=== PATIENT | male | born 1940 | race Caucasian/White ===

== ENCOUNTER 2019-05-30 10:01 | Day surgery (SDC) | payer MEDICARE, OTHER, SELFPAY ==
--- NOTE | 2019-05-30 | PATH_ITS ---
[facility] Accession Number: [id number] . 01 Material submitted: . colon - ASCENDING COLON POLYP BIOPSY . 02 Diagnosis: Ascending Colon, Polyp, Biopsy: Tubular adenoma. [facility]/05/31/2019 . 02 Electronically signed: . Rosa Anderson MD, Pathologist NPI- [id number] . 01 Gross description: . ASCENDING COLON POLYP BIOPSY: Received in formalin is 1 fragment(s) of villasenor, soft tissue measuring 0.3 x 0.2 x 0.2 cm which is entirely submitted and submitted entirely in 1 cassette(s) /DMC /DMC . 02 Pathologist provided ICD-10: D12.2 . 02 CPT . 530044 Performed at: 01 [facility] [address] [id number] MD Josue Hairston MD Phone: [phone] Performed at: 02 [facility] [address] [place], [place] [id number] MD Rosa Anderson MD Phone: [phone]
[2019-05-30 10:19] VITALS: BP 165/92; PULSE 67; RESP 16; TEMP 36.1; O2SAT 97; BMI 28.5
[2019-05-30] MEDS: SODIUM CHLORIDE 0.9% 1,000 ML 100 ML IV (10:20)
--- NOTE | 2019-05-30 10:30 | PM.HP.1 ---
History of Present Illness Date Patient Seen: 05/30/19 Time Patient Seen: 10:31 Chief complaint: [id number] Narrative: Abnormal bowel movements and need for follow-up colonoscopy at a 10 year interval Patient History Medical History (Updated 05/30/19 @ 10:32 by Bre Wilson MD) Asthma (Acute) Chronic GERD (Acute) Constipation (Acute) Helicobacter pylori (H. pylori) (Acute) Hypertension (Acute) Pheochromocytoma (Acute) Prostatism (Acute) Meds Home Medications Medication Instructions Recorded Confirmed Type Aspir-81 81 mg DAILY 05/30/19 05/30/19 History fludrocortisone 0.1 mg DAILY 05/30/19 05/30/19 History hydrocortisone 10 mg ONCE PM 05/30/19 05/30/19 History hydrocortisone 20 mg DAILY 05/30/19 05/30/19 History metoprolol tartrate 25 mg DAILY 05/30/19 05/30/19 History tamsulosin 0.4 mg DAILY 05/30/19 05/30/19 History Allergies Allergy/AdvReac Type Severity Reaction Status Date / Time No Known Drug Allergies Allergy Verified 05/30/19 10:03 Exam Narrative Exam Narrative: Oropharynx free of lesions Chest clear to auscultation percussion Cardiac exam reveals no S3 or murmur Assessment & Plan Assessment & Plan narrative: Change in bowel movements. Need for follow-up colonoscopy. Risks, benefits, alternatives have been explained. He did taken the extra dose of his fludrocortisone
--- NOTE | 2019-05-30 10:33 | P.HP_ITS ---
History of Present Illness Date Patient Seen: 05/30/19 Time Patient Seen: 10:31 Chief complaint: [id number] Narrative: Abnormal bowel movements and need for follow-up colonoscopy at a 10 year interval Patient History Medical History (Updated 05/30/19 @ 10:32 by Bre Wilson MD) Asthma (Acute) Chronic GERD (Acute) Constipation (Acute) Helicobacter pylori (H. pylori) (Acute) Hypertension (Acute) Pheochromocytoma (Acute) Prostatism (Acute) Meds Home Medications Medication Instructions Recorded Confirmed Type Aspir-81 81 mg DAILY 05/30/19 05/30/19 History fludrocortisone 0.1 mg DAILY 05/30/19 05/30/19 History hydrocortisone 10 mg ONCE PM 05/30/19 05/30/19 History hydrocortisone 20 mg DAILY 05/30/19 05/30/19 History metoprolol tartrate 25 mg DAILY 05/30/19 05/30/19 History tamsulosin 0.4 mg DAILY 05/30/19 05/30/19 History Allergies Allergy/AdvReac Type Severity Reaction Status Date / Time No Known Drug Allergies Allergy Verified 05/30/19 10:03 Exam Narrative Exam Narrative: Oropharynx free of lesions Chest clear to auscultation percussion Cardiac exam reveals no S3 or murmur Assessment & Plan Assessment & Plan narrative: Change in bowel movements. Need for follow-up colonoscopy. Risks, benefits, alternatives have been explained. He did taken the extra dose of his fludrocortisone
--- NOTE | 2019-05-30 10:47 | PM.OP.ENDO ---
Operative Date/Time/Diagnoses Date of procedure: 05/30/19 Time of procedure: 10:47 Pre-op diagnosis: See indication and findings Procedure & Clinicians Study performed: Colonoscopy Same procedure as scheduled: Yes Indications: Screening Surgeon: Bre Wilson Procedure Notes Procedure in detail: After informed consent was obtained the patient was placed in left lateral decubitus position. The video colonoscope was introduced the rectum and slowly advanced cecum. Preparation was good. On slow withdrawal mucosa was carefully examined. The scope was removed. The patient tolerated the procedure well. Blood loss none Complications none Sedation Total sedation time 24 minutes Fentanyl 100 mg Versed 3 mg IV titration Findings 1. 3 mm polyp in the ascending colon Jumbo biopsy removed completely 2. Otherwise negative colonoscopy to cecum Will be in touch regarding his colon polyp however regardless of the findings I believe this should be his last colonoscopy.
[2019-05-30] MEDS: MIDAZOLAM 5 MG/5 ML VIAL IV (10:56)
[2019-05-30] MEDS: fentaNYL 250 MCG/5 ML INJ IV (10:57)
--- NOTE | 2019-05-30 11:36 | SUR.PHASEII ---
pt awake and talking on arrival to pacu, pt bypassed pacu and went directly to Phase 2.
[2019-05-30 11:37] VITALS: BP 111/74; PULSE 74; RESP 16; TEMP 36.8; O2SAT 99
[2019-05-30 11:55] VITALS: BP 120/70; PULSE 16; RESP 16; TEMP 36.7; O2SAT 99
== END 2019-05-30 12:00 | disposition home or self-care (01) ==
PROVIDERS: PCP Family Medicine; Visit Provider Internal Medicine Gastroenterology
PROC: 0DJD8ZZ Inspection of Lower Intestinal Tract, Via Natural or Artificial Opening Endoscopic (ICD-10-PCS; CPT 45378; principal; 2019-05-30 11:00)
DX: Z12.11 Encounter for screening for malignant neoplasm of colon (principal); I10 Essential (primary) hypertension; J45.909 Unspecified asthma, uncomplicated; D12.2 Benign neoplasm of ascending colon
CPT/HCPCS: 45380; 88305; J2250; J3010

== ENCOUNTER → 2020-09-16 13:30 | Outpatient (CLI) | payer MEDICARE, BC, SELFPAY ==
--- NOTE | 2020-09-16 | DI.MRI.S_ITS ---
PROCEDURE: MR LUMBAR SPINE WO CON INDICATIONS: Lumbago with sciatica, left side TECHNIQUE: Noncontrast sagittal T1 spin echo and T2 fast echo, sagittal STIR, axial T1 and T2 fast spin echo through the lumbar spine. In cases with scoliosis, additional coronal T2 fast spin echo may be performed. COMPARISON: [facility], CR, XR LUMBAR SPINE 2 OR 3 VIEWS, 06/14/2019, 9:58. FINDINGS: Image quality: Excellent. Alignment and Curvature: There is mild L4-L5 anterolisthesis. 13? of convex left thoracolumbar spine scoliosis. Bones: Schmorl's nodes noted in the inferior endplate of the L1 and L3 vertebral bodies. Reactive endplate changes noted adjacent L1-L2 and L3-L4 disc. No acute vertebral body compression fractures. Spinal Cord: Conus medullaris terminates at the T12 level. Visualized cord demonstrates normal signal and size. Paraspinous Soft Tissues: No paravertebral masses. L1-L2: Loss of disc signal and height. Mild bilateral facet hypertrophy. Mild narrowing of the central canal. Mild bilateral neural foraminal narrowing. No neural compression. L2-L3: Loss of disc signal. Mild, diffuse disc bulge. Moderate bilateral facet hypertrophy. Mild to moderate narrowing of the central canal. Moderate right and mild left neural foraminal narrowing. No neural compression. L3-L4: Loss of disc signal. Mild to moderate diffuse disc bulge. Moderate bilateral facet hypertrophy. Moderate narrowing of the central canal. Moderate right and mild left neural foraminal narrowing. No neural compression L4-L5: Loss of disc signal. Mild, diffuse disc bulge. Moderate right severe left facet hypertrophy. Moderate narrowing of the central canal. Moderate right and moderate to severe left neural foraminal narrowing with slight compression of the exiting left L4 nerve root. L5-S1: Loss of disc signal. Mild, diffuse disc bulge. [id number] bilateral facet hypertrophy. Epidural lipomatosis. Severe narrowing of the central canal. Mild right and moderate left neural foraminal narrowing. Fissure noted in the posterior annulus. IMPRESSION: 1. Multilevel degenerative disease. 2. Multilevel facet arthropathy. 3. Severe L5-S1 central canal narrowing with compression of the traversing nerve roots of the cauda equina. 4. Moderate to severe left L4-L5 neural foraminal narrowing with slight compression of the exiting left L4 nerve root. 5. L5-S1 disc annulus fissure. Dictated by: Priscila Shepherd MD, PhD on 09/16/2020 at 16:17 Approved by: Priscila Shepherd MD, PhD on 09/16/2020 at 16:23
== END ==
PROVIDERS: PCP Family Medicine; Referring Provider Family Medicine; Visit Provider Physical Medicine & Rehabilitation
DX: M51.16 Intervertebral disc disorders with radiculopathy, lumbar region (principal); M51.17 Intervertebral disc disorders with radiculopathy, lumbosacral region; M47.26 Other spondylosis with radiculopathy, lumbar region; M47.27 Other spondylosis with radiculopathy, lumbosacral region; M48.07 Spinal stenosis, lumbosacral region; M48.061 Spinal stenosis, lumbar region without neurogenic claudication
CPT/HCPCS: 72148

== ENCOUNTER → 2021-02-16 13:08 | Outpatient (CLI) | payer MEDICARE, BC, SELFPAY ==
--- NOTE | 2021-02-16 | DI.RAD.S_ITS ---
PROCEDURE: FL BARIUM SWALLOW W SPEECH INDICATIONS: Dysphonia COMPARISON: None. TECHNIQUE: Examination was conducted in conjunction with speech pathology per standard protocol. In the lateral projection, filming was performed of the patient swallowing. AP projection filming may also be performed with patient swallowing. COMPARISON: FINDINGS: Cervical spondylosis is noted from C5-C7 Function: The oral preparatory phase appears normal, with proper containment. The subsequent oral propulsive phase, pharyngeal phase, and esophageal phase of swallowing also appear normal with all proffered substances. No laryngotracheal penetration or aspiration. There was moderate residue. Morphology: No cricopharyngeal bar is identified. No cervical esophageal webs. No Zenker's diverticulum. No strictures. IMPRESSION: No tracheal aspiration seen. Dictated by: Leobardo Munoz M.D. on 02/16/2021 at 14:13 Approved by: Leobardo Munoz M.D. on 02/16/2021 at 14:14
--- NOTE | 2021-02-16 16:18 | ST.SWALLOW ---
Visit Care Team Role Provider Type Mayank Mitchell MD Primary Care Provider Non-Staff Specialty: Medical Address: [address] [place] [address] [address], [place], [address] Email: Zaki Concepcion MD Attending Provider Physician Referring Provider Specialty: Ear, Nose, Throat Address: [address] [place] [address] [place], [address] Email: [email or web address] Modified Barium Swallow Study GUN NUMBER Modified Barium Swallow Study Start: 02/16/21 14:30 Freq: Status: Active Protocol: Document 02/16/21 14:43 LNK (Rec: 02/16/21 15:14 LNK [id number]) Modified Barium Swallow Study Total Time Visit Start Time 13:30 Visit Stop Time 14:00 Total Visit Minutes [address] Concepcion Reason for Referral Dysphagia; throat pain Setting Setting Outpatient Care Patient Information Identification Type Name,Date of Patient History Pt was seen for a Modified Barium Swallow Study at the referral Dr. Jamey MD, ENT. According to the pt for approximately the past 4 years , he has experienced an irritating pain when he swallows. He added that the pain is not consistent. He remarked that Dr. Concepcion observed that one of his vocal folds was not completely closing. No further information was provided. Pt denied an history of surgery or injury in the neck area. Describing his swallow, the pt noted that he may cough during a meal, but that it is not consistent. Subjective Observations Pt presented with a hoarse voice. Pt was seated in the fluoroscopy chair. Procedures and instructions were described for the pt who indicated he understood and agreed to proceed. Patient Positioning Position View Lateral Imaging Lateral View Textures Administered Trials Presented Thin Liquid via Spoon,Thin Liquid via Cup,Pudding Thick Liquid via Spoon,Regular Textures,Barium Tablet Oral Phase Source: MBSIMP (TM) (C) Bolus Specific Scoring Grid Lip Closure No Impairment (WNL) Tongue Control During Bolus Hold No Impairment (WNL) Bolus Prep/Mastication No Impairment (WNL) Bolus Transport/Lingual Motion No Impairment (WNL) A/P Lingual Propulsion Delay No Oral Residue No Impairment (WNL) Residue Clearing No Impairment (WNL) Nasal Regurgitation No Additional Oral Phase Observations Pt had several molars missing noted during the oral examination. Dentition was naturaal and in good hygeine. Strength, ROM, accuracy and speed of structures was observed to be WFL and adequate for mastication. Pharyngeal Phase Source: MBSIMP (TM) (C) Bolus Specific Scoring Grid Delayed Initiation of Pharyngeal Swallow No: WFL with exception of cookie which spilled to the valeculla Soft Palate Elevation WFL Tongue Base Strength/Range of Motion WFL Residue Along the Tongue Base No: trace Clearance of Residue Along Tongue Base Minimal Impairment Laryngeal Elevation Mild Impairment Anterior Hyoid Movement Mild Impairment Epiglottic Range of Motion Mild Impairment Vallecular Residue Yes: across all trials cookie -> more residue; tablet took 20s to cleat valecull Clearance of Vallecular Residue Moderate Impairment Laryngeal Vestibular Closure Mild Impairment Pharyngeal Stripping Wave Mild Impairment Pharyngeal Contraction Mild Impairment Posterior Pharyngeal Wall Residue Yes: trace to minimal Clearance of Posterior Pharyngeal Wall WFL Residue Upper Esophageal Sphincter Opening Mild Impairment Residue in the Pyriform Sinuses Yes Clearance of Residue in the Pyriform Mild Impairment Sinuses Pharyngoesophageal Backflow Observed No Additional Pharyngeal Phase Observations Swallow response was WFL with premature spillage to the valevulla observed x1 with the cookie trial and large consecutive liquid boluses. Laryngeal elevation, hyoid movement and epiglottal inversion were WFL considering pt's age of 80. Mild pooling of contrast residue was observed in the valeculla, pyriform sinuses and posterior pharyngeal wall. Flash penetration into the laryngeal vestibule was observed x1 with consecutive swallows. Linguapharyngeal contact was observed to be weak, contributing to the valecullar pooling. There were osteophytes observed at C5-C6 and C6-C7 that narrowed the bolus flow as well as the UES opening. The last trial was with an 11mm tablet that was observed to stay within ( vertical) or on (horizontal) the epiglottis for 20 seconds. The epiglottis did not fully invert for the tablet; it was swallowed after the 20 seconds successfully. This poses an aspiration risk for the pt. There was no overt s/ sx of aspiration. Pt's swallow is considered WFL for the pt's age. It is recommended that large pills be cut in half, if possible and/or large pills should be taken with a carrier (pudding, applesauce, yogurt, etc) to increase the bolus bulk, which would aid in fully inverting the epiglottis. A/P View Clinical Impressions Dysphagia Type No dysphagia (WFL for pt's age ) Patient Appropriate for Therapy No Recommendations Diet Liquids Order Thin Diet Order Regular Medication Recommendation Whole in Carrier Treatment Plan Recommended Referrals Primary Care Physician,ENT Consult
== END ==
PROVIDERS: PCP Family Medicine; Referring Provider Otolaryngology; Visit Provider Otolaryngology
DX: R49.0 Dysphonia (principal); R07.0 Pain in throat
CPT/HCPCS: 74230; 92610

== ENCOUNTER → 2021-03-12 12:56 | Outpatient (CLI) | payer MEDICARE, BC, SELFPAY | PROVIDERS: PCP Family Medicine; Referring Provider Internal Medicine Endocrinology, Diabetes & Metabolism; Visit Provider Internal Medicine Endocrinology, Diabetes & Metabolism | DX: Z79.818 Long term (current) use of other agents affecting estrogen receptors and estrogen levels (principal); E25.9 Adrenogenital disorder, unspecified; E27.9 Disorder of adrenal gland, unspecified; Z87.891 Personal history of nicotine dependence | CPT/HCPCS: 77080 ==

== ENCOUNTER → 2021-08-14 11:06 | Outpatient (CLI) | payer MEDICARE, BC, SELFPAY ==
--- NOTE | 2021-08-14 | DI.MRI.S_ITS ---
PROCEDURE: MR SHOULDER LT WO CON INDICATIONS: Impingement syndrome of left shoulder TECHNIQUE: Noncontrast oblique coronal T2 fast spin echo with fat saturation, oblique sagittal T1 spin echo and T2 fast spin echo with fat saturation, axial T1 spin echo and T2 fast spin echo with fat saturation through the shoulder. COMPARISON: None. FINDINGS: Image quality: Excellent. Rotator cuff: Supraspinatus: T2 hyperintense signal at the musculotendinous junction, compatible with interstitial tear. Advanced tendinopathy. Macerated appearance of the tendon with near full-thickness tear (i.e. Series 7, image 8). Infraspinatus: Moderate tendinopathy with small partial bursal and articular surface tears. Subscapularis: Mild tendinopathy with partial articular surface tear. Teres minor: No significant abnormality. Sagittal images demonstrate at least grade 2 atrophy of the supraspinatus muscle. Bones and bursae: Flattened contour of the humeral head, likely reflecting Hill-Sachs injury. No fracture line is appreciated. Moderate to advanced acromioclavicular joint degeneration with T2 hyperintense signal within the articulation. No os acromiale. Subacromial/subdeltoid fluid is seen, compatible with bursitis. Moderate distention of the subscapular bursa. Capsule and soft tissues: Signal in the anterior labral, common likely reflecting degenerative change/tear. The long head of the biceps tendon demonstrates normal location and morphology. The coracoclavicular ligament is intact. IMPRESSION: 1. Advanced supraspinatus tendinopathy with macerated appearance of the tendon and a full-thickness tear. 2. Moderate infraspinatus tendinopathy with small partial bursal and articular surface tears. 3. Mild subscapularis tendinopathy with partial articular surface tear. 4. At least grade 2 atrophy of the supraspinatus muscle. 5. Hill-Sachs deformity of the humeral head. 6. Moderate to advanced AC joint degeneration. 7. Mild subacromial/subdeltoid bursitis. 8. Moderate distention of the subscapular bursa. 9. Degenerative changes/tear of the anterior labrum. Dictated by: Ector Austin M.D. on 08/14/2021 at 13:41 Approved by: cEtor Austin M.D. on 08/14/2021 at 13:54
== END ==
PROVIDERS: PCP Internal Medicine; Referring Provider Orthopaedic Surgery; Visit Provider Orthopaedic Surgery
DX: M75.122 Complete rotator cuff tear or rupture of left shoulder, not specified as traumatic (principal); S46.812A Strain of other muscles, fascia and tendons at shoulder and upper arm level, left arm, initial encounter; M62.512 Muscle wasting and atrophy, not elsewhere classified, left shoulder; M21.822 Other specified acquired deformities of left upper arm; M19.012 Primary osteoarthritis, left shoulder; M75.52 Bursitis of left shoulder
CPT/HCPCS: 73221

== ENCOUNTER → 2023-01-12 13:05 | Outpatient (CLI) | payer MEDICARE, BC, SELFPAY ==
--- NOTE | 2023-01-12 | DI.MRI.S_ITS ---
PROCEDURE: MR CERVICAL SPINE WO CON INDICATIONS: Radiculopathy, cervical region TECHNIQUE: Noncontrast sagittal T1 spin echo and T2 fast spin echo, sagittal STIR, foraminal oblique sagittal T2 fast spin echo, and axial gradient echo or T2 fast spin echo through the cervical spine. COMPARISON: [facility], CR, XR CERVICAL SPINE 2 OR 3 VIEWS, 12/23/2022, 10:21. FINDINGS: Image quality: Excellent. Alignment and Curvature: Remote interbody fusion at C6-C7. Trace anterolisthesis of C2 on C3. Bone Marrow: Marrow demonstrates normal overall signal. Spinal Cord: Visualized spinal cord has normal size and signal. No cerebellar tonsillar herniation. Paraspinous Soft Tissues: No paravertebral masses. Prevertebral soft tissues are normal in thickness. C2-C3: Minimal disc bulge. AP diameter of the canal is 9.9 mm. Bilateral facet hypertrophy, prominent on the left. Moderate to severe left foraminal nerve root narrowing with a degree of left foraminal C3 nerve root impingement. C3-C4: Minimal central posterior disc protrusion indenting on the cord minimally. AP diameter of the canal is 9.9 mm. Bilateral facet hypertrophy. [id number] bilateral foraminal narrowing. Short pedicles. C4-C5: Central posterior disc plus osteophyte indenting on the cord. AP diameter of the canal is 8.5 mm. Bilateral facet hypertrophy, prominent on the right. Bilateral uncovertebral joint hypertrophy. Severe right and moderate to severe left foraminal narrowing with bilateral foraminal C5 nerve root impingement. C5-C6: Short pedicles. Diffuse posterior disc post osteophyte flattening the cord. AP diameter of the canal is 7.4 mm. Bilateral uncovertebral joint hypertrophy. Bilateral facet hypertrophy. Severe right and moderate to severe left foraminal narrowing with bilateral foraminal C6 nerve root impingement. C6-C7: Fused. Prominent posterior osteophyte, eccentric to the left. The central canal AP diameter is 6.3 mm. The left side of the canal is narrowed more than that. Mild right foraminal narrowing. Moderate to severe left foraminal narrowing with a degree of left foraminal C7 nerve root impingement. C7-T1: No canal stenosis or foraminal stenosis. IMPRESSION: 1. Remote interbody fusion at C6-C7. 2. There is at least some degree of canal stenosis from C2-C3 through C6-C7. Canal stenosis is moderate at C4-C5, severe at C5-C6, and marked at C6-C7. 3. Significant multilevel foraminal narrowing bilaterally as described above. Findings include moderate to severe left foraminal narrowing at C2-C3, severe right and moderate to severe left foraminal narrowing at C4-C5, severe right and moderate to severe left foraminal narrowing at C5-C6, and moderate to severe left foraminal narrowing at C6-C7. Dictated by: Renato Don M.D. on 01/13/2023 at 9:05 Approved by: Renato Don M.D. on 01/13/2023 at 9:19
== END ==
PROVIDERS: PCP Internal Medicine; Referring Provider Physical Medicine & Rehabilitation; Visit Provider Physical Medicine & Rehabilitation
DX: M54.12 Radiculopathy, cervical region (principal); M48.02 Spinal stenosis, cervical region; Z98.1 Arthrodesis status
CPT/HCPCS: 72141

== ENCOUNTER 2023-11-26 10:52 | Emergency (ER) | payer MEDICARE, OTHER, SELFPAY ==
[2023-11-26 11:03] VITALS: BP 175/79; PULSE 63; RESP 18; TEMP 36.7; O2SAT 98; BMI 28.7
--- NOTE | 2023-11-26 11:39 | DI.RAD.S_ITS ---
PROCEDURE: XR PELVIS 1-2V INDICATIONS: fall TECHNIQUE: One-view of the pelvis acquired. COMPARISON: None. FINDINGS: Bones: No acute fractures or dislocations. No suspicious bony lesions. Soft tissues: Visualized bowel gas pattern is normal. No suspicious soft tissue calcifications. IMPRESSION: No acute osseous abnormality. If the symptoms persist, consider cross sectional imaging such as MRI or CT for further assessment. Approved by: Wes Ross M.D. on 11/26/2023 at 12:38
--- NOTE | 2023-11-26 11:39 | DI.RAD.S_ITS ---
PROCEDURE: XR LUMBAR SPINE 2-3V INDICATIONS: fall TECHNIQUE: 3 views of the lumbar spine were acquired. COMPARISON: [facility], MR, MR LUMBAR SPINE WO CON, 09/16/2020, 13:42. FINDINGS: Bones: 5 [id number] vertebrae are present. Mild levoconvex curvature of the lower thoracic and upper lumbar spine. Mild grade 1 anterolisthesis at L4-5. Moderate superior endplate compression deformity of the L1 vertebral body. Multilevel degenerative disc disease and facet hypertrophy are seen throughout the lumbar spine. No suspicious bony lesions. Soft tissues: Overlying bowel gas pattern is normal. No suspicious soft tissue calcifications. IMPRESSION: Moderate compression fracture of the L1 vertebral body, which is of uncertain age but appears new when compared to the MRI from 09/16/2020. Recommend correlation for point tenderness. Approved by: Wes Ross M.D. on 11/26/2023 at 12:38
--- NOTE | 2023-11-26 11:39 | DI.RAD.S_ITS ---
PROCEDURE: XR SACRUM COCCYX MIN 2V INDICATIONS: fall TECHNIQUE: 3 views of the sacrum and coccyx acquired. COMPARISON: None. FINDINGS: Bones: No acute fractures or dislocations. No suspicious bony lesions. Soft tissues: Visualized bowel gas pattern is normal. No suspicious soft tissue densities. IMPRESSION: No acute osseous abnormality. If the symptoms persist, consider cross sectional imaging such as MRI or CT for further assessment. Approved by: Wes Ross M.D. on 11/26/2023 at 12:35
[2023-11-26] MEDS: ACETAMINOPHEN 325 MG TABLET 975 MG PO (12:13)
--- NOTE | 2023-11-26 13:11 | ED_ITS ---
HPI - Back Pain/Injury <Brook Grimes PA-C - Last Filed: 11/26/23 19:00> General Chief Complaint: Back Pain/Injury Stated Complaint: fall, pain from waist down Time Seen by Provider: 11/26/23 11:14 Source: patient History of Present Illness HPI Narrative: 83-year-old male here today for a fall that occurred yesterday. He slipped on ice and fell straight down on his buttocks with his legs straight out. He is having pain in his low back and lower abdominal area. He is able to walk. States it is most painful when changing positions shifting or going from sitting to standing. He denies numbness or tingling or weakness in the lower extremities. He did not hit his head or have any LOC. his pain does not radiate down his legs. He has a history of sciatica but no history of other back injuries or trauma to the back. He has Guthrie's disease and takes chronic steroids. Related Data Home Medications Medication Instructions Recorded Confirmed Aspir-81 81 mg DAILY 05/30/19 05/30/19 fludrocortisone 0.1 mg DAILY 05/30/19 05/30/19 hydrocortisone 10 mg ONCE PM 05/30/19 05/30/19 hydrocortisone 20 mg DAILY 05/30/19 05/30/19 metoprolol tartrate 25 mg DAILY 05/30/19 05/30/19 tamsulosin 0.4 mg DAILY 05/30/19 05/30/19 Allergies Allergy/AdvReac Type Severity Reaction Status Date / Time No Known Drug Allergies Allergy Verified 05/30/19 10:03 Review of Systems <Brook Grimes PA-C - Last Filed: 11/26/23 19:00> Review of Systems ROS Unobtainable: All systems reviewed & are unremarkable except as noted in HPI and below Patient History <Brook Grimes PA-C - Last Filed: 11/26/23 19:00> Medical History (Updated 11/26/23 @ 17:26 by Brook Grimes PA-C) Prostatism Chronic GERD Constipation Helicobacter pylori (H. pylori) Hypertension Asthma Pheochromocytoma Social History household members: spouse Exam <Brook Grimes PA-C - Last Filed: 11/26/23 19:00> Narrative Exam Narrative: GENERAL: [83] year old patient appears stated age. Well-developed patient, in no acute distress. HEAD: Atraumatic. Normocephalic. EYES: Pupils equal round and reactive. Extraocular motions intact. No scleral icterus. No injection or drainage. ENT: Nose without bleeding, purulent drainage. Airway patent. NECK: Trachea midline. Non tender CARDIOVASCULAR: Regular rate and rhythm without murmurs, gallops, or rubs. RESPIRATORY: Clear to auscultation. Breath sounds equal bilaterally. No wheezes, rales, or rhonchi. GASTROINTESTINAL: Abdomen soft, non-tender, nondistended. EXTREMITIES: No edema or joint tenderness. Normal distal pulses. No hip tenderness. BACK: Nontender without deformity or crepitus. No flank tenderness. No pinpoint spinal tenderness or step-offs. NEURO: AOx3. Ambulating independently. Normal neuro exam of the lower extremities with no weakness or deficits in sensation. no foot drop SKIN: No rash or erythema of visible areas Initial Vital Signs Initial Vital Signs: Vital Signs Temperature 98.0 F 11/26/23 11:03 Pulse Rate 63 11/26/23 11:03 Respiratory Rate 18 11/26/23 11:03 Blood Pressure 175/79 H 11/26/23 11:03 Pulse Oximetry 98 11/26/23 11:03 Oxygen Delivery Method Room Air 11/26/23 11:03 <Courtney Santana MD - Last Filed: 11/27/23 07:05> Initial Vital Signs Initial Vital Signs: Vital Signs Temperature 98.0 F 11/26/23 11:03 Pulse Rate 63 11/26/23 11:03 Respiratory Rate 18 11/26/23 11:03 Blood Pressure 175/79 H 11/26/23 11:03 Pulse Oximetry 98 11/26/23 11:03 Oxygen Delivery Method Room Air 11/26/23 11:03 Course <Brook Grimes PA-C - Last Filed: 11/26/23 19:00> Orders Ordered: Discontinued Medications Acetaminophen (Acetaminophen 325 Mg Tablet) 975 mg PO NOW ONE Stop: 11/26/23 12:08 Last Admin: 11/26/23 12:13 Dose: 975 mg Documented By: MARYAM Ketorolac Tromethamine (Ketorolac 30 Mg/Ml Vial) 30 mg IM NOW ONE Stop: 11/26/23 11:40 Last Admin: 11/26/23 12:03 Dose: Not Given Documented By: MARYAM Vital Signs Vital signs: Vital Signs - 8 hr 11/26/23 11:03 11/26/23 14:22 11/26/23 17:19 Temperature 98.0 F Pulse Rate 63 59 L 60 Respiratory Rate 18 22 20 Blood Pressure 175/79 H 145/67 H 169/82 H Pulse Oximetry 98 97 99 Oxygen Delivery Method Room Air Room Air Room Air 11/26/23 18:36 Temperature Pulse Rate 68 Respiratory Rate 18 Blood Pressure 173/85 H Pulse Oximetry 99 Oxygen Delivery Method Room Air <Courtney Santana MD - Last Filed: 11/27/23 07:05> Orders Ordered: Discontinued Medications Acetaminophen (Acetaminophen 325 Mg Tablet) 975 mg PO NOW ONE Stop: 11/26/23 12:08 Last Admin: 11/26/23 12:13 Dose: 975 mg Documented By: MARYAM Ketorolac Tromethamine (Ketorolac 30 Mg/Ml Vial) 30 mg IM NOW ONE Stop: 11/26/23 11:40 Last Admin: 11/26/23 12:03 Dose: Not Given Documented By: MARYAM Vital Signs Vital signs: Vital Signs - 8 hr 11/26/23 11:03 11/26/23 14:22 11/26/23 17:19 Temperature 98.0 F Pulse Rate 63 59 L 60 Respiratory Rate 18 22 20 Blood Pressure 175/79 H 145/67 H 169/82 H Pulse Oximetry 98 97 99 Oxygen Delivery Method Room Air Room Air Room Air 11/26/23 18:36 Temperature Pulse Rate 68 Respiratory Rate 18 Blood Pressure 173/85 H Pulse Oximetry 99 Oxygen Delivery Method Room Air MDM - Back Pain/Injury <Brook Grimes PA-C - Last Filed: 11/26/23 19:00> Imaging Data Lumbar Xray: Radiologist's Impression: [address] [address] XRay Report Signed Patient: Neri Maynard MR#: [id number] : 1940 Acct:[id number] Age/Sex: 83 / M Date of Service: 11/26/23 Loc: ED Accession Number: [id number] Procedure: XR lumbar spine 2-3V Ordering Provider: Simm,Brook L P.A-C PROCEDURE: XR LUMBAR SPINE 2-3V INDICATIONS: fall TECHNIQUE: 3 views of the lumbar spine were acquired. COMPARISON: [facility], MR, MR LUMBAR SPINE WO CON, 09/16/2020, 13:42. FINDINGS: Bones: 5 [id number] vertebrae are present. Mild levoconvex curvature of the lower thoracic and upper lumbar spine. Mild grade 1 anterolisthesis at L4-5. Moderate superior endplate compression deformity of the L1 vertebral body. Multilevel degenerative disc disease and facet hypertrophy are seen throughout the lumbar spine. No suspicious bony lesions. Soft tissues: Overlying bowel gas pattern is normal. No suspicious soft tissue calcifications. IMPRESSION: Moderate compression fracture of the L1 vertebral body, which is of uncertain age but appears new when compared to the MRI from 09/16/2020. Recommend correlation for point tenderness. Approved by: Wes Ross M.D. on 11/26/2023 at 12:38 Sacrum and Coccyx Xray : Radiologist's Impression: [address] [address] XRay Report Signed Patient: Neri Maynard MR#: [id number] : 1940 Acct:[id number] Age/Sex: 83 / M Date of Service: 11/26/23 Loc: ED Accession Number: [id number] Procedure: XR sacrum coccyx min 2V Ordering Provider: Brook Grimes P.A-C PROCEDURE: XR SACRUM COCCYX MIN 2V INDICATIONS: fall TECHNIQUE: 3 views of the sacrum and coccyx acquired. COMPARISON: None. FINDINGS: Bones: No acute fractures or dislocations. No suspicious bony lesions. Soft tissues: Visualized bowel gas pattern is normal. No suspicious soft tissue densities. IMPRESSION: No acute osseous abnormality. If the symptoms persist, consider cross sectional imaging such as MRI or CT for further assessment. Approved by: Wes Ross M.D. on 11/26/2023 at 12:35 Pelvis Xray : Radiologist's Impression: [address] [address] XRay Report Signed Patient: Neri Maynard MR#: [id number] : 1940 Acct:[id number] Age/Sex: 83 / M Date of Service: 11/26/23 Loc: ED Accession Number: [id number] Procedure: XR pelvis 1-2V Ordering Provider: Brook Grimes P.A-C PROCEDURE: XR PELVIS 1-2V INDICATIONS: fall TECHNIQUE: One-view of the pelvis acquired. COMPARISON: None. FINDINGS: Bones: No acute fractures or dislocations. No suspicious bony lesions. Soft tissues: Visualized bowel gas pattern is normal. No suspicious soft tissue calcifications. IMPRESSION: No acute osseous abnormality. If the symptoms persist, consider cross sectional imaging such as MRI or CT for further assessment. Approved by: Wes Ross M.D. on 11/26/2023 at 12:[address] : Radiologist's Impression: [address] [address] [address] Scan Report Signed Patient: Neri Maynard MR#: [id number] : 1940 Acct:[id number] Age/Sex: 83 / M Date of Service: 11/26/23 Loc: ED Accession Number: [id number] Procedure: CT lumbar spine wo con Ordering Provider: Brook Grimes P.A-C PROCEDURE: CT LUMBAR SPINE WO CON INDICATIONS: L1 compression fx TECHNIQUE: Noncontrast 3 mm thick sections acquired from the T12 level to the sacrum. Sagittal and coronal reformats were constructed. For radiation dose reduction, the following was used: automated exposure control. COMPARISON: [facility], , MR LUMBAR SPINE WO CON, 09/16/2020, 13:42. FINDINGS: Image quality: Excellent. Bones: There is normal bony alignment. No acute vertebral body compression fractures. No suspicious lytic or blastic bony lesions. No pars defects. Convex left thoracolumbar scoliosis present. Wedge-shaped L1 compression fracture with 50% anterior height loss and no retrop ulsed fracture fragment. Right L5 pars defect without spondylolisthesis. Degenerative disc space narrowing and hypertrophic facet joints associated with moderate central stenosis L3-4, grade 1 anterior spondylolisthesis L4-5 with moderate central stenosis and left foraminal stenosis Soft tissues: No retroperitoneal masses or hematomas. Visualized aorta is normal in caliber. IMPRESSION: L1 compression fracture without significant retropulsed fracture fragment new from 09/16/2020. 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 on 11/26/2023 at 13:54 MDM Narrative Medical decision making narrative: Patient is ambulating independently, has no neurologic deficits, in his initial exam was benign with no vertebral tenderness or step-offs or other pinpoint tenderness found. However due to his age and history of chronic steroids for his Guthrie's I obtained imaging of his lumbar, sacral, and pelvic regions. Lumbar x-ray revealed an L1 compression fracture. This was followed up with a CT without contrast which showed 50% loss of vertebral height but good alignment overall. I obtained a consultation with neurosurgery through [facility], Dr Garvey, and he recommended patient wear a TLSO brace whenever sitting and standing and recommend no twisting, bending, or lifting over 5 lb. TLSO brace was put on patient today and follow up x-rays of patient's standing with brace on were done to check for vertebral alignment. Recommends patient follow up with Neurosurgery within 2 weeks. Patient already has a neurosurgeon in [place] Dr. Redding who they will plan to follow up with. Patient continues to have no neurologic deficits on exam and he has decent pain control with OTC analgesics. Discharge Plan Departure Patient Disposition: Home Clinical Impression: Compression fracture of first lumbar vertebra Qualifiers: Encounter type: initial encounter Qualified Code(s): S32.010A - Wedge compression fracture of first lumbar vertebra, initial encounter for closed fracture Instructions: Vertebral Compression Fracture Activity Restrictions/Additional Instructions: You were seen today for back pain after a fall yesterday. Your back x-ray revealed a compression fracture of the L1 vertebrae. Due to the level of involvement of the vertebrae (50%) it was recommended that you wear a TLSO brace which you were given today. Please wear this whenever you are sitting or standing. Please avoid all bending and twisting. Please avoid lifting over 5 lb. You will need to follow up with Neurosurgery within the next 2 weeks. You already have a neurosurgeon Dr. Redding so please call his office this week to ar range a follow up appointment. If you develop any numbness or tingling or weakness in your legs please return to the emergency department. Please continue to take ibuprofen 600 mg every 6-8 hours as needed for pain and you may take Tylenol 500 mg in between if needed. Prescriptions: No Action Aspir-81 81 mg 81 mg DAILY fludrocortisone 0.1 mg 0.1 mg DAILY hydrocortisone 5 mg 20 mg DAILY hydrocortisone 5 mg 10 mg ONCE PM metoprolol tartrate 25 mg 25 mg DAILY tamsulosin 0.4 mg 0.4 mg DAILY Referrals: Kirk Perez MD [Primary Care Provider] - Stand Alone Forms: Patient Portal/API ED Sign-out <Courtney Santana MD - Last Filed: 11/27/23 07:05> Cosign ED Attending Cosignature Attestation: I did not see this patient. I was available all times for consultation.
--- NOTE | 2023-11-26 13:15 | PC.NURSE ---
provider at bedside w/ pt and family
[2023-11-26 14:22] VITALS: BP 145/67; PULSE 59; RESP 22; O2SAT 97
--- NOTE | 2023-11-26 17:03 | DI.RAD.S_ITS ---
PROCEDURE: XR LUMBAR SPINE 2-3V INDICATIONS: L1 compression fx TECHNIQUE: 3 views of the lumbar spine were acquired. COMPARISON: [facility], CR, XR LUMBAR SPINE 2-3V, 11/26/2023, 11:49. FINDINGS: Bones: Generalized decreased osseous mineralization noted.. L1 compression fracture noted in appropriate position in brace. Facet arthropathy throughout the exam so seated with grade 1 anterior spondylolisthesis L4-5. Soft tissues: Overlying bowel gas pattern is normal. No suspicious soft tissue calcifications. IMPRESSION: L1 compression fracture in TLSO brace Degenerative disc disease and arthropathy Approved by: Johann Jaramillo M.D. on 11/26/2023 at 18:28
[2023-11-26 17:19] VITALS: BP 169/82; PULSE 60; RESP 20; O2SAT 99
[2023-11-26 18:36] VITALS: BP 173/85; PULSE 68; RESP 18; O2SAT 99
== END 2023-11-26 19:21 | disposition home or self-care (01) ==
PROVIDERS: Emergency Provider Physician Assistant; PCP Internal Medicine
DX: S32.010A Wedge compression fracture of first lumbar vertebra, initial encounter for closed fracture (principal); W00.0XXA Fall on same level due to ice and snow, initial encounter
CPT/HCPCS: 72100; 72131; 72170; 72220; 99283; 99284

== ENCOUNTER → 2024-09-26 15:36 | Outpatient (CLI) | payer MEDICARE, OTHER, SELFPAY ==
--- NOTE | 2024-09-26 15:37 | DI.MRI.S_ITS ---
PROCEDURE: MR LUMBAR SPINE WO CON INDICATIONS: Compression fracture TECHNIQUE: Noncontrast sagittal T1 spin echo and T2 fast echo, sagittal STIR, and T2 fast spin echo through the lumbar spine. In cases with scoliosis, additional coronal T2 fast spin echo may be performed. COMPARISON: [facility], CR, XR THORACOLUMBAR SPINE 2 VIEWS, 12/27/2023, 11:14. [facility], CR, XR THORACOLUMBAR SPINE 2 VIEWS, 02/14/2024, 11:21. [facility], MR, MR LUMBAR SPINE WO CON, 09/16/2020, 13:42. FINDINGS: Alignment and Curvature: Grade 1 degenerative anterior spondylolisthesis L4-5 Bone Marrow: Wedge-shaped compression fracture at L1 with 70% anterior height loss and marrow edema. No retropulsed fracture fragment. Modic type 1 edematous endplate changes noted at L2 Spinal Cord: Conus medullaris terminates at the L1 level. Visualized cord demonstrates normal signal and size. Paraspinous Soft Tissues: No paravertebral masses. T12-L1: Disc bulge asymmetric to the right results in mild central stenosis. No foraminal stenosis. L1-L2: Disc bulge and arthropathy. Mild central stenosis. Moderate right and no left foraminal stenosis L2-L3: Disc bulge and arthropathy. Mild central stenosis. Moderate right foraminal stenosis. No left foraminal stenosis L3-L4: Disc bulge asymmetric to the right. Mild central stenosis. Arthropathy. Moderate right and left foraminal stenosis. L4-L5: Degenerative disc disease and arthropathy. Moderate central stenosis. Moderate left and mild right foraminal stenosis. L5-S1: Arthropathy. No central stenosis. Moderate bilateral foraminal stenosis. IMPRESSION: L1 subacute compression fracture Multilevel degenerative disc disease and arthropathy results in varying degrees of central and foraminal stenosis including moderate central stenosis L4-5 Approved by: Johann Jaramillo M.D. on 09/26/2024 at 17:17
== END ==
PROVIDERS: PCP Internal Medicine; Referring Provider Physical Medicine & Rehabilitation; Visit Provider Physical Medicine & Rehabilitation
DX: S32.010A Wedge compression fracture of first lumbar vertebra, initial encounter for closed fracture (principal); M51.369 Other intervertebral disc degeneration, lumbar region without mention of lumbar back pain or lower extremity pain; M47.816 Spondylosis without myelopathy or radiculopathy, lumbar region; M48.061 Spinal stenosis, lumbar region without neurogenic claudication; M47.817 Spondylosis without myelopathy or radiculopathy, lumbosacral region; M48.07 Spinal stenosis, lumbosacral region
CPT/HCPCS: 72148

== ENCOUNTER → 2024-10-08 11:10 | Outpatient (CLI) | payer MEDICARE, OTHER, SELFPAY ==
--- NOTE | 2024-10-08 11:11 | DI.RAD.S_ITS ---
PROCEDURE: XR DEXA AXIAL SKELETON INDICATIONS: osteoporosis COMPARISON: [facility], CR, XR DEXA AXIAL SKELETON, 03/12/2021, 13:17. FINDINGS: Lumbar Spine: Bone mineral density 1.248 g/cm2, T score 1.8, compared to 0.6. Left Hip: Bone mineral density 1.105 g/cm2, T score 1.3, compared to 0.7. Left Femoral Neck: Bone mineral density 0.867 g/cm2, T score 0.2, compared to 0. Right Hip: Bone mineral density 1.143 g/cm2, T score 1.6, compared to 0.8. Right Femoral Neck: Bone mineral density 0.905 g/cm2, T score 0.5, compared to 0.1. Fracture Risk Calculation (when applicable): 10-year fracture risk of a major osteoporotic fracture 10 percent and of a hip fracture 2.8 percent. (T score greater or equal to -1.0 to: NORMAL) (T score from -1.1 to -2.4: OSTEOPENIA) (T score less than or equal to -2.5: OSTEOPOROSIS) IMPRESSION: Normal bone mineral density improved compared to prior exam. Follow-up guidelines as follows: Osteoporosis: Consider a repeat DEXA and Vertebral Fracture Assessment (VFA) exam in 2 years or sooner if medically necessary, to reassess this patient's status. Osteopenia: Consider a repeat DEXA in 2-3 years to reassess this patient's status, or if there is a new clinical indication. Normal: Consider a repeat DEXA in 5 years or sooner, or if there is a new clinical indication. All treatment decisions require clinical judgment and consideration of individual patient factors, including patient preferences, comorbidities, previous drug use, risk factors not captured in the FRAX model (e.g., frailty, falls, vitamin D deficiency, increased bone turnover, interval significant decline in bone density ) and possible under- or over-estimation of fracture risk by FRAX. In addition, the NOF Guide recommends that FDA-approved medical therapies be considered in postmenopausal women and men age >= 50 years with a: * Hip or vertebral (clinical or morphometric) fracture * T-score of <=-2.5 at the spine or hip * Ten-year fracture probability by FRAX of >= 3% for hip fracture or >=20% for major osteoporotic fracture. People with diagnosed cases of osteoporosis or at high risk for fracture should have regular bone mineral density tests. For patients eligible for Medicare, routine testing is allowed once every 2 years. The testing frequency can be increased to one year for patients who have rapidly progressing disease, those who are receiving or discontinuing medical therapy to restore bone mass, or have additional risk factors. Dictated by: Melissa Madison M.D. on 10/08/2024 at 16:19 Approved by: Melissa Madison M.D. on 10/08/2024 at 16:32
== END ==
PROVIDERS: PCP Internal Medicine; Referring Provider Physical Medicine & Rehabilitation; Visit Provider Physical Medicine & Rehabilitation
DX: M81.0 Age-related osteoporosis without current pathological fracture (principal)
CPT/HCPCS: 77080